=== PATIENT | male | born 1995 ===

== ENCOUNTER 2025-09-13 12:37 | Emergency (ER) | payer SELFPAY ==
[2025-09-13 13:21] VITALS: BP 140/101; PULSE 73; RESP 18; TEMP 36.4; O2SAT 98
--- NOTE | 2025-09-13 14:44 | ED.GENADULT ---
HPI - General Adult General Chief complaint: Unspecified Stated complaint: needle stick Time Seen by Provider: 09/13/25 14:44 Focused HPI: This is a 30 year old male that presents to the ER for needlestick injury. 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 He nicked his left thumb after. His cut was very mildly bleeding. He has washed his hands. Unsure of medical history on the patient that he was exposed to. GENERAL: Well-appearing, well-nourished, and in no acute distress. HEAD: Normocephalic, atraumatic. CHEST: No respiratory distress. HEART: Regular rate NEURO: ?Alert and oriented x3. Patient screened in triage and initial orders placed.? ?Additional care and disposition to be based upon?diagnostic testing and treatment. Related Data Allergies Allergy/AdvReac Type Severity Reaction Status Date / Time No Known Allergies Allergy Verified 09/13/25 12:40 Course Vital Signs Vital signs: Vital Signs Temperature 97.5 F L 09/13/25 13:21 Pulse Rate 73 09/13/25 13:21 Respiratory Rate 18 09/13/25 13:21 Blood Pressure 140/101 H 09/13/25 13:21 Pulse Oximetry 98 09/13/25 13:21 Oxygen Delivery Room Air 09/13/25 13:21 Temperature 97.5 F L 09/13/25 13:21 Pulse Rate 73 09/13/25 13:21 Respiratory Rate 18 09/13/25 13:21 Blood Pressure 140/101 H 09/13/25 13:21 Pulse Oximetry 98 09/13/25 13:21 Oxygen Delivery Room Air 09/13/25 13:[address] [facility] Narrative Medical decision making narrative: Patient left after medical screening exam and initial workup, and before any further evaluation or management Vital Signs Vital Signs: Vital Signs Temperature 97.5 F L 09/13/25 13:21 Pulse Rate 73 09/13/25 13:21 Respiratory Rate 18 09/13/25 13:21 Blood Pressure 140/101 H 09/13/25 13:21 Pulse Oximetry 98 09/13/25 13:21 Oxygen Delivery Room Air 09/13/25 13:21 Temperature 97.5 F L 09/13/25 13:21 Pulse Rate 73 09/13/25 13:21 Respiratory Rate 18 09/13/25 13:21 Blood Pressure 140/101 H 09/13/25 13:21 Pulse Oximetry 98 09/13/25 13:21 Oxygen Delivery Room Air 09/13/25 13:21 Lab Data 09/13/25 15:18 09/13/25 15:18 Labs: Lab Results 09/13/25 Range/Units 15:18 WBC 8.2 (4.5-10.0) K/mm3 RBC 5.55 (4.6-6.20) M/mm3 Hgb 16.4 (14.0-18.0) g/dL Hct 47.1 (42.0-52.0) % MCV 84.9 (80-100) fl MCH 29.5 (26-34) pg MCHC 34.8 (32-36) g/dl RDW 12.4 (11.5-14.5) % Plt Count 263 (150-375) k/mm3 MPV 8.5 (7.4-10.4) fl Immature Gran % (Auto) 0.1 (0-0.5) % Neut % (Auto) 53.2 (45.5-73.1) % Lymph % (Auto) 40.6 (18.3-44.2) % [place] % (Auto) 4.4 (2.6-8.5) % Eos % (Auto) 1.6 (0-4.4) % Baso % (Auto) 0.1 L (0.2-1.2) % Lymph # (Auto) 3.31 H (0.9-3.2) K/mm3 [place] # (Auto) 0.4 (0.1-0.6) K/mm3 Eos # (Auto) 0.1 (0-0.3) K/mm3 Baso # (Auto) 0.0 (0.0-0.1) K/mm3 Abs Immat Gran (auto) 0.01 (0.00-0.031) K/mm3 Absolute Neuts (auto) 4.3 (1.3-6.7) K/mm3 Absolute Nucleated RBC 0.000 (0.0-0.012) K/mm3 Nucleated RBC % 0.0 (0.0-0.2) % Sodium 139 (137-145) mmol/L Potassium 3.8 (3.4-5.0) mmol/L Chloride 103 (98-107) mmol/L Carbon Dioxide 29 (22-30) mmol/L Anion Gap 7 (4-12) mmol/L BUN 10 (9-20) mg/dL Creatinine 0.72 (0.7-1.3) mg/dL Estim Creat Clear Calc 125 ml/min Estimated GFR > 60 (59 - ) Glucose 78 (65-110) mg/dL Calcium 9.3 (8.4-10.2) mg/dL Total Bilirubin 1.2 (0.2-1.3) mg/dL AST 37 (17-59) U/L ALT 35 (6-50) U/L Alkaline Phosphatase 55 (38-126) U/L Total Protein 7.9 (6.3-8.2) g/dL Albumin 4.9 (3.5-5.1) g/dL Hep Bs Antigen Negative (Negative) Hepatitis C Ab Screen Negative (Negative) HIV 1&2 Ab/P24 Ag 4thGn Negative (Negative) Discharge Plan Discharge Clinical Impression: Needlestick injury accident Patient Disposition: Elopement After Seen by Prov Patient Language: [place] Follow-up/Referrals: PHYSICIAN,SEISMOGRAPH SHOOTER [Non-Staff, Internal Medicine]
[2025-09-13 15:27] LABS: Hematocrit 47.1 % (42.0-52.0); Hemoglobin 16.4 g/dL (14.0-18.0); Immature Granulocyte Percent A 0.1 % (0-0.5); Lymphocytes Absolute Auto 3.31 K/mm3 (0.9-3.2); Mean Corpuscular HGB Conc 34.8 g/dl (32-36); Mean Corpuscular Hemoglobin 29.5 pg (26-34); Mean Corpuscular Volume 84.9 fl (80-100); Nucleated Red Blood Cells Absolute Auto 0.000 K/mm3 (0.0-0.012); Nucleated Red Blood Cells Perc 0.0 % (0.0-0.2); Platelet Count Result 263 k/mm3 (150-375); Red Blood Count 5.55 M/mm3 (4.6-6.20); White Blood Count 8.2 K/mm3 (4.5-10.0)
[2025-09-13 15:39] LABS: Alanine Aminotransferase 35 U/L (6-50); Albumin Level 4.9 g/dL (3.5-5.1); Alkaline Phosphatase 55 U/L (38-126); Anion Gap 7 mmol/L (4-12); Aspartate Amino Transferase 37 U/L (17-59); Bilirubin,Total 1.2 mg/dL (0.2-1.3); Blood Urea Nitrogen 10 mg/dL (9-20); Calcium 9.3 mg/dL (8.4-10.2); Carbon Dioxide 29 mmol/L (22-30); Chloride 103 mmol/L (98-107); Estimated CRCL calculation 125 ml/min; Estimated Glomerular Filt Rate > 60; Glucose 78 mg/dL (65-110); Potassium 3.8 mmol/L (3.4-5.0); Sodium 139 mmol/L (137-145); Total Protein 7.9 g/dL (6.3-8.2)
[2025-09-13 18:59] LABS: Hepatitis B Surface Antigen Negative (Negative)
[2025-09-13 19:16] LABS: HIV 1/2 Ab P24 Ag Result Negative (Negative)
== END 2025-09-13 17:00 | disposition left against medical advice (07) ==
PROVIDERS: Emergency Provider Physician Assistant
DX: S61.032A Puncture wound without foreign body of left thumb without damage to nail, initial encounter (principal); W46.1XXA Contact with contaminated hypodermic needle, initial encounter
CPT/HCPCS: 36415; 80053; 85025; 86703; 86803; 87340; 99283; G0432